=== PATIENT | female | born 1990 | race Caucasian/White ===

== ENCOUNTER → 2021-05-21 | Outpatient (CLI) | payer MEDICAID ==
[2021-05-21 23:48] LABS: HCT 37.7 % (37.2-46.3); HGB 12.4 g/dL (12.0-15.0); MCH 31.7 pg (27.0-32.0); MCHC 32.9 g/dL (32.0-37.0); MCV 96.4 fL (80.0-97.0); Mean Platelet Volume 12.5 fL (9.5-12.2); Platelet Count 214 X 10*3/uL (140-440); RBC 3.91 X 10*6/uL (4.10-5.20); RDW 13.6 % (11.5-14.5)
== END | disposition home or self-care (01) ==
LOC: LABWHC1 14:12
PROVIDERS: ATTEND Obstetrics & Gynecology Obstetrics
DX: Z36.9 Encounter for antenatal screening, unspecified (principal)
CPT/HCPCS: 36415; 82950; 85027

== ENCOUNTER → 2021-11-17 | Outpatient (CLI) | payer MEDICAID ==
[2021-11-17 22:33] LABS: Basophils # (A) 0.07 X 10*3/uL (0.00-0.10); Basophils % (A) 0.9 %; Eosinophils # (A) 0.06 X 10*3/uL (0.04-0.35); Eosinophils % (A) 0.8 %; HCT 43.4 % (37.2-46.3); HGB 13.7 g/dL (12.0-15.0); Immature Grans, Automated 0.3 %; Lymphocytes # (A) 2.36 X 10*3/uL (0.90-5.00); Lymphocytes % (A) 31.8 %; MCH 29.5 pg (27.0-32.0); MCHC 31.6 g/dL (32.0-37.0); MCV 93.5 fL (80.0-97.0); Mean Platelet Volume 11.4 fL (9.5-12.2); Monocytes % (A) 6.7 %; NRBC Per 100 WBC 0 /100 WBCS (0.0-0.0); Neutrophils % (A) 59.5 %; Platelet Count 313 X 10*3/uL (140-440); RBC 4.64 X 10*6/uL (4.10-5.20); RDW 12.9 % (11.5-14.5); WBC 7.41 X 10*3/uL (4.50-10.00)
[2021-11-17 23:03] LABS: African American GFR (CKD) 133.8 (60.0-200.0); Albumin/Globulin Ratio 1.76 (1.60-3.17); Anion Gap 14.7 mmol/L (10.00-18.00); BUN/Creat Ratio 15.33 Ratio (12.00-20.00); Blood Urea Nitrogen 10.5 mg/dL (9.0-27.0); Calcium 9.8 mg/dL (8.7-10.3); Carbon Dioxide 24.9 mmol/L (20.0-27.5); Globulin 2.8 g/dL (1.6-3.3); HDL Cholesterol 97.2 mg/dL (40.00-60.00); Non-African American GFR(CKD) 115.5 (60.0-200.0); Potassium 3.8 mmol/L (3.5-5.5); Total Protein 7.8 g/dL (6.2-8.2); Triglycerides 44.6 mg/dL (0.00-149.00)
[2021-11-17 23:04] LABS: T4, Free (Free Thyroxine) 1.19 ng/dL (0.800-1.800); Total Bilirubin 0.5 mg/dL (0.30-1.20)
[2021-11-17 23:16] LABS: Chol/HDL Ratio 2.41 Ratio
[2021-11-18 10:50] LABS: Alternaria alternata IgE 1.25 kU/L; Aspergillus fumagatus IgE <0.10 kU/L; Birch IgE 1.55 kU/L; Cat Epith & Dander IgE 3.55 kU/L; Cladosporian herbarum IgE <0.10 kU/L; Clam IgE <0.10 kU/L; Cockroach IgE <0.10 kU/L; Codfish IgE <0.10 kU/L; Dermato. farinae IgE 1.94 kU/L; Dog Dander IgE 4.72 kU/L; Egg White IgE <0.10 kU/L; Elm IgE <0.10 kU/L; Maple (Box Elder) IgE <0.10 kU/L; Oak IgE <0.10 kU/L; Peanut IgE <0.10 kU/L; Ragweed,Common IgE 2.64 kU/L; Scallop IgE <0.10 kU/L; Shrimp IgE <0.10 kU/L; Soybean IgE <0.10 kU/L; Walnut IgE (Food) <0.10 kU/L
[2021-11-18 14:12] LABS: Alt. alternata IgE Class CLASS 2; Alternaria alternata IgE 0.85 kU/L (<0.10); Asperg. fumagatus IgE <0.10 kU/L (<0.10); Asperg. fumagatus IgE Class CLASS 0; Bermuda Grass IgE 0.44 kU/L (<0.10); Birch(Com.Silvr) IgE 0.34 kU/L (<0.10); Birch(Com.Silvr) IgE Class CLASS 0/1; Cat Epith & Dander IgE 2.64 kU/L (<0.10); Cat Epith & Dander IgE Class CLASS 2; Clad herbarum IgE <0.10 kU/L (<0.10); Clad herbarum IgE Class CLASS 0; Cockroach IgE <0.10 kU/L (<0.10); Cottonwood IgE <0.10 kU/L (<0.10); Dermato. Pteronyssinus Class CLASS 2; Dermato. Pteronyssinus IgE 0.78 kU/L (<0.10); Dermato. farinae IgE 0.64 kU/L (<0.10); Dermato. farinae IgE Class CLASS 1; Elm IgE <0.10 kU/L (<0.10); IgE (Allergen) 67.8 IU/mL (<114.0); Maple (Box Elder) IgE <0.10 kU/L (<0.10); Maple (Box Elder) IgE Class CLASS 0; Mountain Cedar IgE <0.10 kU/L (<0.10); Mountain Cedar IgE Class CLASS 0; Mouse Urine IgE Class CLASS 0; Mouse Urine Proteins,IgE <0.10 kU/L (<0.10); Nettle IgE <0.10 kU/L (<0.10); Nettle IgE Class CLASS 0; Oak IgE <0.10 kU/L (<0.10); Penicillium chrysogenum IgE <0.10 kU/L (<0.10); Penicillium chrysogenum IgE Cl CLASS 0; Rough Marshelder IgE <0.10 kU/L (<0.10); Rough Marshelder IgE Class CLASS 0; Timothy Grass IgE 5.12 kU/L (<0.10); Timothy Grass IgE Class CLASS 3; White Ash IgE Class CLASS 0
== END | disposition home or self-care (01) ==
LOC: LABWHC1 14:19
PROVIDERS: ATTEND Family Medicine
DX: Z00.00 Encounter for general adult medical examination without abnormal findings (principal); Z68.22 Body mass index [BMI] 22.0-22.9, adult; Z87.898 Personal history of other specified conditions; J30.81 Allergic rhinitis due to animal (cat) (dog) hair and dander; Z91.09 Other allergy status, other than to drugs and biological substances; R20.0 Anesthesia of skin
CPT/HCPCS: 36415; 80053; 80061; 82607; 82785; 83721; 84439; 84443; 85025; 86003

== ENCOUNTER → 2023-07-15 | Outpatient (CLI) | payer MEDICAID ==
[2023-07-15 15:30] LABS: HCT 41.6 % (37.2-46.3); HGB 14.1 g/dL (12.0-15.0); MCH 31.4 pg (27.0-32.0); MCHC 33.9 g/dL (32.0-37.0); MCV 92.7 FL (80.0-97.0); Mean Platelet Volume 11.9 FL (9.5-12.2); NRBC Per 100 WBC 0 X 10*3/uL (0.00-0.01); Platelet Count 272 X 10*3/uL (140-440); RBC 4.49 X 10*6/uL (4.10-5.20); RDW 12.7 % (11.5-14.5); WBC 10.05 X 10*3/uL (4.50-10.00)
[2023-07-15 16:48] LABS: Hepatitis B Surface Antigen Nonreactive
[2023-07-15 19:22] LABS: HIV 2 AB Non-Reactive (Non-Reactive); HIV AB P24 Non-Reactive (Non-Reactive); HIV P24 AG Non-Reactive (Non-Reactive)
== END | disposition home or self-care (01) ==
LOC: LABWHC1 10:44
PROVIDERS: ATTEND Obstetrics & Gynecology Obstetrics
DX: Z34.81 Encounter for supervision of other normal pregnancy, first trimester (principal)
CPT/HCPCS: 36415; 85027; 86762; 86780; 86850; 86900; 86901; 87086; 87340; 87390

== ENCOUNTER → 2023-10-15 | Outpatient (CLI) | payer MEDICAID ==
[2023-10-15 13:06] LABS: HCT 40.4 % (37.2-46.3); HGB 13.4 g/dL (12.0-15.0); MCH 30.9 pg (27.0-32.0); MCHC 33.2 g/dL (32.0-37.0); MCV 93.3 FL (80.0-97.0); Mean Platelet Volume 11.2 FL (9.5-12.2); NRBC Per 100 WBC 0 X 10*3/uL (0.00-0.01); Platelet Count 246 X 10*3/uL (140-440); RBC 4.33 X 10*6/uL (4.10-5.20); WBC 13.43 X 10*3/uL (4.50-10.00)
== END | disposition home or self-care (01) ==
LOC: LABWHC1 09:24
PROVIDERS: ATTEND Obstetrics & Gynecology Obstetrics
DX: Z36.9 Encounter for antenatal screening, unspecified (principal)
CPT/HCPCS: 36415; 82950; 85027

== ENCOUNTER → 2023-12-06 | Outpatient (CLI) | payer MEDICAID | END | disposition home or self-care (01) | LOC: LABPRL 16:15 | PROVIDERS: ATTEND Obstetrics & Gynecology Obstetrics | DX: Z36.85 Encounter for antenatal screening for Streptococcus B (principal) | CPT/HCPCS: 87081 ==

== ENCOUNTER 2023-12-10 21:11 | Emergency (ER) | payer MEDICAID ==
[2023-12-10] MEDS ORDERED: OXYMETAZOLINE 0.05% NASL SPRAY 1 SPRAY BOTTLE ONE (22:11)
== END 2023-12-10 23:18 | disposition home or self-care (01) ==
LOC: EC 21:11
DX: R04.0 Epistaxis (principal)

== ENCOUNTER 2023-12-12 15:57 | Emergency (ER) | payer MEDICAID ==
[2023-12-12] MEDS ORDERED: OXYMETAZOLINE 0.05% NASL SPRAY 1 SPRAY BOTTLE ONE (16:48)
== END 2023-12-12 20:05 | disposition home or self-care (01) ==
LOC: EC 15:57
DX: R04.0 Epistaxis (principal)
CPT/HCPCS: 99283

== ENCOUNTER 2023-12-23 07:15 | Inpatient (IN) | payer MEDICAID ==
[2023-12-23] MEDS ORDERED: NALBUPHINE 10 MG/ML (10 ML MDV) ONE (10:06)
[2023-12-23] MEDS ORDERED: MORPHINE SULFATE (PF) 0.3 MG/0.3 ML SYR ONE (10:06)
[2023-12-23] MEDS ORDERED: KETOROLAC 15 MG/ML 1 ML VIAL ONE (10:06)
[2023-12-24] MEDS ORDERED: METHYLERGONOVINE 0.2 MG/ML 1 ML AMP IM PRN (16:25)
[2023-12-24] MEDS ORDERED: CITRIC ACID-SODIUM CITRATE 15 ML CUP PO ONE (16:25)
[2023-12-25] MEDS ORDERED: ONDANSETRON 4 MG/2 ML VIAL IVP PRN (00:46)
[2023-12-25] MEDS ORDERED: LANOLIN CREAM 1 GM TUBE TOPICAL PRN (00:46)
[2023-12-25] MEDS ORDERED: ZOLPIDEM 5 MG TAB PO PRN (00:46)
[2023-12-25] MEDS ORDERED: NALOXONE 0.4 MG/ML 1 ML VIAL IV PRN (00:46)
[2023-12-25] MEDS ORDERED: diphenhydrAMINE 50 MG/ML 1 ML VIAL IVP PRN ×2 (00:46)
[2023-12-25] MEDS ORDERED: METOCLOPRAMIDE 5 MG/ML 2 ML VIAL IVP PRN (00:46)
[2023-12-25] MEDS ORDERED: diphenhydrAMINE 25 MG CAP PO PRN (00:46)
[2023-12-25] MEDS ORDERED: HYDROmorphone 0.5 MG/0.5 ML SYRINGE IVP PRN (00:53)
[2023-12-25] MEDS ORDERED: ACETAMINOPHEN TAB 325 MG TAB PO SCH (01:00)
[2023-12-25] MEDS ORDERED: OXYTOCIN 30 UNITS/500 ML NS 30 UNIT in SALINE 1 500ML.BAG IV SCH (01:00)
[2023-12-25] MEDS ORDERED: LACTATED RINGERS 1,000 ML IV SCH (01:00)
[2023-12-25] MEDS: SIMETHICONE 80 MG CHEWABLE PO PRN (03:49)
[2023-12-25] MEDS: diphenhydrAMINE 50 MG CAP PO PRN (03:49)
[2023-12-25] MEDS: ACETAMINOPHEN TAB 500 MG TAB PO SCH (04:30)
[2023-12-25] MEDS: IBUPROFEN 600 MG TAB PO SCH (05:47)
[2023-12-25] MEDS ORDERED: ACETAMINOPHEN IV (For NPO) 1,000 MG in EMPTY BAG 1 BAG IVPB SCH (06:00)
[2023-12-25] MEDS: SENNOSIDES-DOCUSATE SODIUM 1 EACH TAB PO SCH (08:10)
[2023-12-25 08:21] VITALS: RESP 16
[2023-12-25] MEDS ORDERED: IBUPROFEN IV 800 MG in SODIUM CHLORIDE 0.9% 250 ML IV SCH (12:00)
[2023-12-25] MEDS: ESCITALOPRAM 10 MG TAB PO SCH (22:07)
--- NOTE | 2023-12-26 12:34 | P.PNOBGPC ---
Subjective - Subjective Principal diagnosis: Postop day 3, repeat section Interval history: Patient is doing well postoperatively. She is ambulating and voiding without difficulty. She tolerating regular diet without nausea or vomiting. States her pain is well-controlled. is being monitored for weight loss, but doing well breast-feeding is going well. Patient reports: Reports appetite normal, Reports voiding normally, Reports pain well controlled, Reports ambulating normally Bally: doing well, nursing well Objective - Vital Signs Latest vital signs: Vital Signs Temp Pulse Resp BP Pulse Ox 12/26/23 08:00 97.7 F 79 16 136/86 98 12/26/23 00:00 97.6 F 98 16 126/81 97 12/25/23 16:30 96 12/25/23 16:00 96 16 128/86 Intake and Output 12/25/23 12/26/23 12/26/23 22:59 06:59 14:59 Other: # Voids 2 - Exam Extremities: Present: normal, edema Abdomen: Present: normal appearance, soft Incision: Present: normal, dry, intact Uterus: Present: normal, firm Assessment and Plan (1) Term Current Visit: Yes Status: Acute Code(s): Z34.90 - ENCNTR FOR SUPRVSN OF NORMAL , UNSP, UNSP TRIMESTER SNOMED Code(s): 64136936 (2) History of section Current Visit: Yes Status: Acute Code(s): Z98.891 - HISTORY OF UTERINE SCAR FROM PREVIOUS SURGERY SNOMED Code(s): 017768095 (3) S/P section Current Visit: No Status: Acute Code(s): Z98.891 - HISTORY OF UTERINE SCAR FROM PREVIOUS SURGERY SNOMED Code(s): 652330696 Plan: Patient is doing well postoperatively. She does desire to stay an additional day for feeding help given infant's weight concerns. was complicated by intrauterine growth restriction. Will continue routine postoperative care and anticipate discharge home tomorrow.
[2023-12-26 20:57] VITALS: TEMP 98.1
[2023-12-27 08:47] VITALS: BP 130/86; PULSE 90
--- NOTE | 2023-12-27 13:05 | P.DS ---
Providers Date of admission: 12/23/23 07:15 Expected date of discharge: 12/27/23 Attending physician: Montse Branham Primary care physician: Stated None - Discharge Diagnosis(es) (1) Term Current Visit: Yes Status: Acute (2) History of section Current Visit: Yes Status: Acute (3) S/P section Current Visit: No Status: Acute Hospital Course: 33-year-old 2 now para 2 that presents to labor and delivery for scheduled repeat section. Patient has been receiving routine care with myself which has been essentially uncomplicated. For full details in this patient please see the dictated history and physical. Patient was taken back to the operating suite where a was performed without difficulty. For full details on the please see the dictated operative report. Patient delivered a viable female infant at 1026, weight of 5 pounds 4 ounces, Apgars of 8 and 9 at 1 and 5 minutes respectively. Patient has done well postoperatively. And is postoperative day #4 she is ambulating and voiding without difficulty. She is tolerating a regular diet without nausea or vomiting. She states her pain is well-controlled. She denies concerns. She d oes wish discharge home. Patient Condition at Discharge: Good Plan - Discharge Summary New Discharge Prescriptions: No Action Vit No.180/Iron/Folic [ Plus Vitamin-Mineral] 1 tab PO DAILY Aspirin 1 tab PO DAILY Discharge Medication List Aspirin 1 tab PO DAILY 08/02/21 [History] Vit No.180/Iron/Folic [ Plus Vitamin-Mineral] 1 tab PO DAILY 08/02/21 [History] Follow up Appointment(s)/Referral(s): Montse Branham DO [Doctor of Osteopathic Medicine] - 2 Weeks Patient Instructions/Handouts: (DC), (GEN) Activity/Diet/Wound Care/Special Instructions: No intercourse, tampons or tub baths. No heavy lifting greater than a gallon of milk. No driving for two weeks. Call with any fever, shakes or chills, with any pain not alleviated by over the counter meds, or with any questions or concerns. Ibuprofen, [id number] 600 mg 3 tablets every 6 hours as needed Discharge Disposition: HOME SELF-CARE
== END 2023-12-27 14:27 | disposition home or self-care (01) | DRG 788 ==
LOC: 4FBP 07:15
PROVIDERS: ADMIT Obstetrics & Gynecology Obstetrics; ATTEND Obstetrics & Gynecology Obstetrics
PROC: 10D00Z1 Extraction of Products of Conception, Low, Open Approach (ICD-10-PCS; principal; 2023-12-23)
DX: O34.219 Maternal care for unspecified type scar from previous cesarean delivery (principal); Z37.0 Single live birth; O36.5930 Maternal care for other known or suspected poor fetal growth, third trimester, not applicable or unspecified; Z3A.39 39 weeks gestation of pregnancy; Z28.21 Immunization not carried out because of patient refusal; Z88.0 Allergy status to penicillin; Z88.8 Allergy status to other drugs, medicaments and biological substances